=== PATIENT | male | born 1955 | race African-American/Black ===

== ENCOUNTER 2017-04-09 06:40 | Emergency (ER) | payer MEDICARE, MEDICAID ==
[~2017-04-09] VITALS: Ht 177.8 cm; Wt 68.0 kg
[~2017-04-09 06:40] MED LIST: ALBUTEROL SULF8.5 GM INH; AZITHROMYCIN250 MG ORAL; AZITHROMYCIN250 MG PO; BARACLUDE1 MG PO; EPZICOM1 TAB PO; IBUPROFEN600 MG ORAL; LIORESAL20 MG PO; PROMETHAZINE-D118 ML ORAL; REYATAZ200 MG PO; VIREAD300 MG PO; [UNRECOGNIZED DRUG - REMARK]
[2017-04-09 07:05] VITALS: BP 156/91
--- NOTE | 2017-04-09 07:08 | Emergency Room Report ---
History of Present Illness General Chief Complaint: General Complaint Present Illness HPI Patient is a 61-year-old male who presented after increased generalized itching. Patient denied any change in skin color or recent illness. He states that he been having itching without any evidence of rash. This been present for several days. Patient thinks that this is related to stress. He denies any yellowing of his eyes. He had not been vomiting. Allergies: Coded Allergies: ETRAVIRINE (Verified Allergy, Severe, RASH, 03/01/11) EFAVIRENZ (Verified Allergy, Mild, SUSTIVA INTOLERANCE, 02/28/11) Patient History Reviewed Nursing Documentation: PMH: Agreed, PSxH: Agreed Nursing Documentation-PMH Hx Cancer: No Hx Gastrointestinal Problems: Yes - LIVER PROBLEM Review of Systems All Other Systems: negative except mentioned in HPI Physical Exam Vital Signs Date Time Temp Pulse Resp B/P (MAP) Pulse Ox O2 Delivery O2 Flow Rate FiO2 04/09/17 06:54 97.3 67 16 156/91 99 Room Air General Appearance: well appearing, no apparent distress, alert, GCS 15 Head: normocephalic, atraumatic ENT: hearing grossly normal, normal voice Neck: full range of motion, supple Respiratory: no respiratory distress, speaking full sentences Cardiovascular #1: normal inspection, regular rate, rhythm Gastrointestinal: normal inspection, non tender, soft Musculoskeletal: normal inspection, back normal, digits/nails normal, no calf tenderness Neurologic: normal inspection, alert, oriented x3, responsive, assistant construction superintendent III-XII nml as tested, normal gait Psychiatric: normal inspection, judgement/insight normal, mood/affect normal Skin: normal inspection, normal color, no rash Medical Decision Making Diagnostic Impression: Primary Impression: Itching ER Course patient presented for generalized iItching. Differential diagnosis included was not limited to allergic reaction, eczema, scabies, hyperbilirubinemia among others. Patient has a benign exam and does not appear to require any further imaging or laboratory testing at this time. The patient is advised to return if there is any change in skin color or if symptoms worsen. The patient is advised to follow up with primary care doctor in 1-2 daysThis report is dictated with Quovo head of quality software which may occasionally lead to discrepancies related to use of this software. Last Vital Signs Date Time Temp Pulse Resp B/P (MAP) Pulse Ox O2 Delivery O2 Flow Rate FiO2 04/09/17 06:54 97.3 67 16 156/91 99 Room Air Status: improved Disposition: HOME, SELF-CARE Condition: Stable Heber Luis Apr 09, 2017 07:08
[2017-04-09] MEDS ORDERED: HYDROXYZINE HCL10 M1 PO (07:09)
[2017-04-09 07:15] VITALS: BP 156/91
== END 2017-04-09 07:15 | disposition home or self-care (01) ==
LOC: EMR 07:05
DX: L29.9 Pruritus, unspecified (principal); Z88.8 Allergy status to other drugs, medicaments and biological substances
CPT/HCPCS: 99282

== ENCOUNTER 2017-12-09 12:06 | Emergency (ER) | payer MEDICARE, MEDICAID ==
[~2017-12-09] VITALS: Ht 170.2 cm; Wt 74.8 kg
[~2017-12-09 12:06] MED LIST changes: +HYDROXYZINE HCL10 M1 PO
[2017-12-09 12:15] VITALS: BP 161/89
[2017-12-09] MEDS ORDERED: VALACYCLOVIR500 MG ORAL (12:44)
--- NOTE | 2017-12-09 12:45 | Emergency Room Report ---
History of Present Illness General Chief Complaint: Skin Rash/Abscess Source: Patient Present Illness HPI 62-year-old male patient presents ER complaining of rash on his back the past few days. Reports small rash on his back. States that it is itchy. States that he is now beginning to experience pain shooting around to the side to his front at the same level. Denies rash at this area. Denies abdominal pain, dysuria, hematuria. Reports history of HIV, states CD4 count and viral load are good. Denies fever, chest pain, shortness of breath. States he thinks he may been bitten by a bug, however does not see a bug bite and. Reports been using cortisone cream on the affected area. Allergies: Coded Allergies: ETRAVIRINE (Verified Allergy, Severe, RASH, 03/01/11) EFAVIRENZ (Verified Allergy, Mild, SUSTIVA INTOLERANCE, 02/28/11) Patient History Past Medical History: see triage record Reviewed Nursing Documentation: PMH: Agreed; PSxH: Agreed Nursing Documentation-PMH Hx Cancer: No Hx Gastrointestinal Problems: Yes - LIVER PROBLEM Review of Systems All Other Systems: negative except mentioned in HPI Physical Exam Vital Signs Date Time Temp Pulse Resp B/P (MAP) Pulse Ox O2 Delivery O2 Flow Rate FiO2 12/09/17 12:08 98.0 71 20 161/89 100 Room Air 98.1 Sp02 EP Interpretation: reviewed, normal General Appearance: well appearing, no apparent distress, alert, GCS 15, non- toxic Head: normocephalic, atraumatic Eyes: bilateral eye normal inspection, bilateral eye PERRL ENT: hearing grossly normal, normal pharynx, no angioedema, normal voice, uvula midline, moist mucus membranes Neck: full range of motion Respiratory: lungs clear, normal breath sounds, no rhonchi, no respiratory distress, no accessory muscle use, no wheezing, speaking full sentences Cardiovascular #1: regular rate, rhythm, no edema Gastrointestinal: non tender, soft, no mass, non-distended, no guarding, no rebound Musculoskeletal: back normal, digits/nails normal, gait/station normal, normal range of motion, non-tender Psychiatric: mood/affect normal Skin: other - 1cm circular erythematuos vesicles on erythematous base, no weeping lesions, no blisters, no edema, no TTP, no bite abernathy, no fluctuance or induration, no target sign Medical Decision Making PA Attestation Dr. Bullock is my supervising Physician whom patient management has been discussed with. Diagnostic Impression: Primary Impression: Shingles ER Course Pt. presents to the ED c/o rash. Ddx considered but are not limited to atopic dermatitis, shingles, contact dermatitis, molluscum contagiousum. Vital signs: are WNL, pt. is afebrile ER COURSE On physical exam rash consistent with shingles, likely early onset of shingles to pain radiating along single dermatome without rash present, rash does not extend into multiple dermatomes. Avoid contact with women and children to avoid transmission of shingles virus. Will treat with valacyclovir. Followup with PCP for referral to executive creative director. continued take HIV medication and monitor labs with PCP. Patient seen and evaluated by Dr. Bullock, agrees with assessment and plan. DISCHARGE: Rx provided for Valacyclovir, 1gm TID At this time pt is stable for d/c to home. Patient is resting comfortably, in no acute distress, nontoxic appearing. Patient to take medications as instructed Will provide with patient care instructions and any necessary prescriptions. Care plan and follow-up instructions provided. Patient instructed to follow-up with primary care provider in 3 - 5 days. Patient questions asked and answered. Patient reports understanding and agreement to treatment plan. ER precautions given. Patient instructed to return to ER immediately for any new or worsening of symptoms including but not limited to increasing SOB, persistent fever, intractable vomiting, worsening of rash. - Please note that this Emergency Department Report was dictated using Mobstatsmodel builder technology software, occasionally this can lead to erroneous entry secondary to interpretation by the dictation equipment. Last Vital Signs Date Time Temp Pulse Resp B/P (MAP) Pulse Ox O2 Delivery O2 Flow Rate FiO2 12/09/17 12:08 98.0 71 20 161/89 100 Room Air 98.1 Disposition: HOME, SELF-CARE Condition: Stable Scripts Valacyclovir Hcl* (VALTREX*) 500 Mg Tablet 1000 MG ORAL TID, #30 TAB Prov: Richard Ma 12/09/17 Patient Instructions: Shingles, [id number] Additional Instructions: Followup with primary care provider in 3 -5 days. do not scratch or itch. Take medications as directed. Patient questions asked and answered. ER precautions given, patient instructed to return to ER immediately for any new or worsening of symptoms. Richard Ma Dec 09, 2017 12:44
[2017-12-09 13:05] VITALS: BP 161/89
== END 2017-12-09 13:05 | disposition home or self-care (01) ==
LOC: EMR 12:50
DX: B02.9 Zoster without complications (principal); Z88.8 Allergy status to other drugs, medicaments and biological substances
CPT/HCPCS: 99283

== ENCOUNTER 2017-12-21 17:35 | Emergency (ER) | payer MEDICARE, MEDICAID ==
[~2017-12-21] VITALS: Ht 172.7 cm; Wt 74.8 kg
[~2017-12-21 17:35] MED LIST changes: +VALACYCLOVIR500 MG ORAL
[2017-12-21 17:55] VITALS: BP 152/93
--- NOTE | 2017-12-21 17:58 | Emergency Room Report ---
History of Present Illness General Chief Complaint: Skin Rash/Abscess Source: Patient Present Illness HPI Patient recently treated with valacyclovir for shingles L side of chest. Persistent pain with is intermittent, but severe. Radiates to abdomen and flank. No fevers. No cough. Rash is improving and crusting. No NVD, dysuria, joint pain, headache, dyspnea. No depression. Patient with h/o HIV. Stable on medication. Allergies: Coded Allergies: ETRAVIRINE (Verified Allergy, Severe, RASH, 03/01/11) EFAVIRENZ (Verified Allergy, Mild, SUSTIVA INTOLERANCE, 02/28/11) Patient History Past Medical History: see triage record, HIV Social History: Denies: smoking Social History Narrative with sig other Reviewed Nursing Documentation: PMH: Agreed; PSxH: Agreed Nursing Documentation-PMH Past Medical History: No History, Except For Hx Cancer: No Hx Gastrointestinal Problems: Yes - LIVER PROBLEM Review of Systems ENT: Reports: no symptoms All Other Systems: negative except mentioned in HPI Physical Exam Vital Signs Date Time Temp Pulse Resp B/P (MAP) Pulse Ox O2 Delivery O2 Flow Rate FiO2 12/21/17 17:37 98.6 69 19 151/91 97 Room Air 98.6 Sp02 EP Interpretation: reviewed, normal General Appearance: well appearing, no apparent distress Head: normocephalic, atraumatic Eyes: bilateral eye normal inspection, bilateral eye PERRL ENT: hearing grossly normal, normal voice, moist mucus membranes Neck: full range of motion, supple Respiratory: lungs clear, no respiratory distress, speaking full sentences Cardiovascular #1: regular rate, rhythm Cardiovascular #2: 2+ radial (L) Gastrointestinal: normal inspection, normal bowel sounds, non tender, soft Genitourinary: no CVA tenderness Musculoskeletal: back normal, digits/nails normal, gait/station normal, normal range of motion, no calf tenderness Neurologic: alert, oriented x3, normal gait, grossly normal Psychiatric: mood/affect normal Skin: warm/dry, other - resolving shingles rash L T6 or T7 dermatome Medical Decision Making Diagnostic Impression: Primary Impression: Neurodynia post shingles Additional Impressions: Shingles Qualified Codes: B02.8 - Zoster with other complications HIV (human immunodeficiency virus infection) ER Course Patient with persistent pain post treatment for shingles. Diagnosis is clinical. No evidence of abdominal or chest pathology. Indication for analgesia. VS stable and although HIV + no evidence of disseminated disease and rash is resolving. Discussed treatment plan. Discussed that there might be other treatments if prescribed medications do not control the pain. Discussed infectivity with significant other. Patient stable for outpatient observation and treatment. Last Vital Signs Date Time Temp Pulse Resp B/P (MAP) Pulse Ox O2 Delivery O2 Flow Rate FiO2 12/21/17 18:35 98.7 12/21/17 18:17 81 19 152/93 97 Room Air Status: improved Disposition: HOME, SELF-CARE Condition: Improved Scripts Ibuprofen* (MOTRIN*) 600 Mg Tablet 600 MG ORAL Q6H PRN for For Pain, #20 TAB Prov: Josef Sue M.D. 12/21/17 Tramadol Hcl* (ULTRAM*) 50 Mg Tablet 50 MG ORAL Q6H PRN for For Pain, #16 TAB 0 Refills Prov: Josef Sue M.D. 12/21/17 Capsaicin (Zostrix Hp) 56.6 Gm Cream..g. 1 APPLIC TP BID PRN for For Pain, #60 GM 1 Refill Prov: Josef Sue M.D. 12/21/17 Josef Sue M.D. Dec 21, 2017 17:58
[2017-12-21] MEDS ORDERED: oxyCODONE HCL/Acetaminophen 5/325mg ORAL ONE (18:00)
[2017-12-21] MEDS ORDERED: IBUPROFEN600 MG ORAL (18:02)
[2017-12-21] MEDS ORDERED: TRAMADOL HCL50 MG ORAL (18:02)
[2017-12-21] MEDS ORDERED: ZOSTRIX HP56.6 G2 TP (18:02)
[2017-12-21 18:17] VITALS: BP 152/93
== END 2017-12-21 18:17 | disposition home or self-care (01) ==
LOC: EMR 18:03
DX: B02.9 Zoster without complications (principal); B02.29 Other postherpetic nervous system involvement; Z21 Asymptomatic human immunodeficiency virus [HIV] infection status
CPT/HCPCS: 99283

== ENCOUNTER 2018-03-04 09:22 | Emergency (ER) | payer MEDICARE, MEDICAID ==
[~2018-03-04] VITALS: Ht 170.2 cm; Wt 73.5 kg
[~2018-03-04 09:22] MED LIST changes: +TRAMADOL HCL50 MG ORAL; +ZOSTRIX HP56.6 G2 TP
[2018-03-04 11:16] LABS: ANION GAP 7 mmol/L (5-15); BLOOD UREA NITROGEN 17 mg/dL (7-18); CALCIUM 9.3 MG/DL (8.5-10.1); CARBON DIOXIDE 28 MMOL/L (21-32); CHLORIDE 105 MMOL/L (98-107); CREATININE 1.4 MG/DL (0.55-1.30); POTASSIUM 4.1 MMOL/L (3.5-5.1); SODIUM 140 MMOL/L (136-145)
[2018-03-04 11:22] LABS: ALANINE AMINOTRANSFERASE 47 U/L (12-78); ALBUMIN 3.9 G/DL (3.4-5.0); ALBUMIN/GLOBULIN RATIO 0.8 (1.0-2.7); ALKALINE PHOSPHATASE 101 U/L (46-116); ASPARTATE AMINO TRANSFERASE 30 U/L (15-37); BILIRUBIN,TOTAL 0.4 MG/DL (0.2-1.0)
[2018-03-04] MEDS ORDERED: PREDNISONE20 MG ORAL (11:30)
--- NOTE | 2018-03-04 11:30 | Emergency Room Report ---
History of Present Illness General Chief Complaint: Skin Rash/Abscess Source: Patient Present Illness HPI This patient c/o about two days itching bilateral legs, mainly thighs. No clear etiology. No new meds/foods/exposures. No fever, no trauma. No trauma, no fever , no shortness of breath, no travel history, no leg swelling, no chest pain, no diaphoresis, no nausea, no vomiting, no diarrhea, no abdominal pain. Tolerating po fine, normal urinary output, normal bm. No syncope, LOC, dizziness, lightheadedness, headache. +HIV meds; he does not recall last blood test. Allergies: Coded Allergies: ETRAVIRINE (Verified Allergy, Severe, RASH, 03/01/11) EFAVIRENZ (Verified Allergy, Mild, SUSTIVA INTOLERANCE, 02/28/11) Nursing Documentation-[facility] Past Medical History: No History, Except For Hx Cancer: No Hx Gastrointestinal Problems: Yes - Hep B Review of Systems All Other Systems: limited Physical Exam Vital Signs Date Time Temp Pulse Resp B/P (MAP) Pulse Ox O2 Delivery O2 Flow Rate FiO2 03/04/18 09:27 98.2 72 18 143/86 98 Room Air General Appearance: well appearing, no apparent distress Head: normocephalic, atraumatic ENT: hearing grossly normal, normal voice Neck: full range of motion, supple Respiratory: no respiratory distress, speaking full sentences Musculoskeletal: other - mild urticaria medial bilat thighs Neurologic: alert, normal gait Psychiatric: mood/affect normal Skin: no rash Medical Decision Making Diagnostic Impression: Primary Impression: Urticaria Additional Impression: HIV (human immunodeficiency virus infection) Last Vital Signs Date Time Temp Pulse Resp B/P (MAP) Pulse Ox O2 Delivery O2 Flow Rate FiO2 03/04/18 09:27 98.2 72 18 143/86 98 Room Air Status: improved Disposition: HOME, SELF-CARE Condition: Stable Scripts Prednisone* (PREDNISONE*) 20 Mg Tablet 40 MG ORAL DAILY, #5 TAB Prov: Reinaldo Palm M.D. 03/04/18 Referrals: NON PHYSICIAN (PCP) Patient Instructions: Exercise-Induced Urticaria-[employer] Reinaldo Palm M.D. Mar 04, 2018 11:30
[2018-03-04 11:40] VITALS: BP 140/84
[2018-03-04 11:41] VITALS: BP 143/86
== END 2018-03-04 11:43 | disposition home or self-care (01) ==
LOC: EMR 09:40
DX: L50.9 Urticaria, unspecified (principal); B20 Human immunodeficiency virus [HIV] disease; Z88.8 Allergy status to other drugs, medicaments and biological substances
CPT/HCPCS: 36415; 80053; 99282; J7512

== ENCOUNTER 2018-04-04 11:20 | Emergency (ER) | payer MEDICARE, MEDICAID ==
[~2018-04-04] VITALS: Ht 170.2 cm; Wt 74.8 kg
[~2018-04-04 11:20] MED LIST changes: +PREDNISONE20 MG ORAL
--- NOTE | 2018-04-04 11:52 | NUR ---
ED Nurse Note: patient walked into ED with his friend c/o sorethroat, cough, and red eyes. patient rates pain at 8/10. ambulatory with steady gait.
[2018-04-04 12:25] VITALS: BP 156/93
[2018-04-04] MEDS ORDERED: Sodium Chloride 500ML 500 ML IV ONE (12:34)
[2018-04-04] MEDS ORDERED: Solu-MEDROL 125mg Inj IVP ONE (12:45)
[2018-04-04] MEDS ORDERED: Ketorolac 30mg Inj IV ONE (12:45)
[2018-04-04] MEDS ORDERED: Albuterol ud Inhalation HHN ONE (12:45)
--- NOTE | 2018-04-04 13:02 | Emergency Room Report ---
History of Present Illness General Chief Complaint: Flu Like Symptoms Source: Patient Present Illness HPI Patient presents with complaints of cough and congestion body aches reports that initially his symptoms started with some watery eyes Continue to worsen with the cough denies any chest pain denies any vomiting or diarrhea patient has HIV however reports He has appropriate CD4 counts denies any neck pain or photophobia however he does complain of sore throat Denies any focal weakness denies any recent travel Allergies: Coded Allergies: ETRAVIRINE (Verified Allergy, Severe, RASH, 03/01/11) EFAVIRENZ (Verified Allergy, Mild, SUSTIVA INTOLERANCE, 02/28/11) Patient History Past Medical History: see triage record Pertinent Family History: none Reviewed Nursing Documentation: PMH: Agreed; PSxH: Agreed Nursing Documentation-PMH Hx Hypertension: Yes Hx Cancer: No Hx Gastrointestinal Problems: Yes - Hep B Review of Systems All Other Systems: negative except mentioned in HPI Physical Exam Vital Signs Date Time Temp Pulse Resp B/P (MAP) Pulse Ox O2 Delivery O2 Flow Rate FiO2 04/04/18 11:47 98.2 71 18 156/93 97 04/04/18 12:52 Room Air 21 Sp02 EP Interpretation: reviewed, normal General Appearance: well appearing, no apparent distress Head: normocephalic, atraumatic Eyes: right eye other - Mild conjunctival erythema; bilateral eye PERRL, bilateral eye EOMI ENT: hearing grossly normal, normal pharynx, TMs + canals normal, uvula midline Neck: full range of motion, supple, no meningismus, no bony tend Respiratory: lungs clear, normal breath sounds, no rhonchi, no respiratory distress, no retraction, no accessory muscle use Cardiovascular #1: normal peripheral pulses, regular rate, rhythm, no edema, no gallop, no JVD, no murmur Gastrointestinal: normal bowel sounds, non tender, soft, no mass, no organomegaly, non-distended, no guarding, no hernia, no pulsatile mass, no rebound Genitourinary: no CVA tenderness Musculoskeletal: normal inspection Neurologic: oriented x3, responsive, 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, motor strength/ tone normal, sensory intact Psychiatric: mood/affect normal Skin: normal color, no rash, warm/dry, palpation normal Lymphatic: normal inspection, no adenopathy Medical Decision Making Diagnostic Impression: Primary Impression: Atypical pneumonia Additional Impression: Conjunctivitis ER Course Multiple differentials considered patient has appropriate CD4 count and immune level Extensive workup was initiated imaging study does not reveal any obvious acute pathologyextensive workup was initiated patient has done imaging study does not reveal any obvious acute pathology patient has done significantly better throughout his stay significantly better throughout his stay Feels improved I discussed with him regardingFeels improved I discussed with him regarding further inpatient care versus attempting outpatient disposition patient reports that patient reports that he feels better feels better And would like to attempt initial outpatient care Labs Test 04/04/18 12:53 White Blood Count 6.1 K/UL (4.8-10.8) Red Blood Count 4.54 M/UL (4.70-6.10) Hemoglobin 14.1 G/DL (14.2-18.0) Hematocrit 42.2 % (42.0-52.0) Mean Corpuscular Volume 93 FL (80-99) Mean Corpuscular Hemoglobin 31.0 PG (27.0-31.0) Mean Corpuscular Hemoglobin Concent 33.3 G/DL (32.0-36.0) Red Cell Distribution Width 12.2 % (11.6-14.8) Platelet Count 159 K/UL (150-450) Mean Platelet Volume 8.3 FL (6.5-10.1) Neutrophils (%) (Auto) 69.6 % (45.0-75.0) Lymphocytes (%) (Auto) 20.8 % (20.0-45.0) Monocytes (%) (Auto) 7.0 % (1.0-10.0) Eosinophils (%) (Auto) 1.8 % (0.0-3.0) Basophils (%) (Auto) 0.8 % (0.0-2.0) Sodium Level 143 MMOL/L (136-145) Potassium Level 4.1 MMOL/L (3.5-5.1) Chloride Level 105 MMOL/L (98-107) Carbon Dioxide Level 29 MMOL/L (21-32) Anion Gap 9 mmol/L (5-15) Blood Urea Nitrogen 10 mg/dL (7-18) Creatinine 1.0 MG/DL (0.55-1.30) Estimat Glomerular Filtration Rate > 60 mL/min (>60) Glucose Level 101 MG/DL (74-106) Calcium Level 9.5 MG/DL (8.5-10.1) Total Bilirubin 0.5 MG/DL (0.2-1.0) Aspartate Amino Transf (AST/SGOT) 45 U/L (15-37) Alanine Aminotransferase (ALT/SGPT) 31 U/L (12-78) Alkaline Phosphatase 101 U/L (46-116) Total Creatine Kinase 178 U/L (26-308) Creatine Kinase MB < 0.5 NG/ML (0.0-3.6) Creatine Kinase MB Relative Index 0.2 Pro-B-Type Natriuretic Peptide 100 pg/mL (0-125) Total Protein 8.0 G/DL (6.4-8.2) Albumin 3.6 G/DL (3.4-5.0) Globulin 4.4 g/dL Albumin/Globulin Ratio 0.8 (1.0-2.7) Lipase 95 U/L (73-393) Rhythm Strip Diag. Results EP Interpretation: yes Rate: 88 Rhythm: NSR, no PVC's, no ectopy Chest X-Ray Diagnostic Results Chest X-Ray Diagnostic Results : Chest X-Ray Ordered: Yes # of Views/Limited/Complete: 1 View Indication: Chest Pain EP Interpretation: Yes Interpretation: no consolidation, no effusion, no pneumothorax Impression: No acute disease Electronically Signed by: Rasta Blackwood DO Last Vital Signs Date Time Temp Pulse Resp B/P (MAP) Pulse Ox O2 Delivery O2 Flow Rate FiO2 04/04/18 12:52 63 20 Room Air 21 04/04/18 12:52 100 04/04/18 12:25 98.2 156/93 Status: improved Disposition: HOME, SELF-CARE Condition: Improved Scripts Gentamicin Sulfate* (GENTAMICIN SULFATE*) 3.5 Gm Oint...g. 1 INCH OP BID for 7 Days, GM Prov: Rasta Blackwood DO 04/04/18 Codeine/Promethazine Hcl* (PROMETHAZINE-CODEINE SYRUP*) 118 Ml Syrup 10 ML ORAL Q6H PRN for For Cough for 5 Days, ML 0 Refills Prov: Rasta Blackwood DO 04/04/18 Azithromycin* (ZITHROMAX*) 250 Mg Tablet 250 MG ORAL DAILY, #6 TAB 0 Refills Take two tables once daily for 1 day, then one tablet once daily for 4 days. Prov: Rasta Blackwood DO 04/04/18 Trimethoprim/Sulfamethoxazole 160/800* (BACTRIM DS TABLET*) 1 Each Tablet 1 TAB ORAL Q12H, #14 TAB 0 Refills Prov: Rasta Blackwood DO 04/04/18 Ibuprofen* (MOTRIN*) 600 Mg Tablet 600 MG ORAL Q8H PRN for For Pain, #20 TAB 0 Refills Prov: Rasta Blackwood DO 04/04/18 Additional Instructions: Patient is provided with the discharge instructions notified to follow up with primary doctor in the next 2-3 days otherwise return to the er with any worsening symptoms. Please note that this report is being documented using Brigade technology. This can lead to erroneous entry secondary to incorrect interpretation by the dictating instrument.my discharge instructions Rasta Blackwood DO Apr 04, 2018 13:02
[2018-04-04 13:17] LABS: BASOPHILS % (AUTO) 0.8 % (0.0-2.0); EOSINOPHILS % (AUTO) 1.8 % (0.0-3.0); HEMATOCRIT 42.2 % (42.0-52.0); HEMOGLOBIN 14.1 G/DL (14.2-18.0); LYMPHOCYTES % (AUTO) 20.8 % (20.0-45.0); MEAN CORPUSCULAR VOLUME 93 FL (80-99); NEUTROPHILS % (AUTO) 69.6 % (45.0-75.0); PLATELET COUNT 159 K/UL (150-450); RED BLOOD COUNT 4.54 M/UL (4.70-6.10); RED CELL DISTRIBUTION WIDTH 12.2 % (11.6-14.8); WHITE BLOOD COUNT 6.1 K/UL (4.8-10.8)
[2018-04-04 13:27] LABS: ANION GAP 9 mmol/L (5-15); BLOOD UREA NITROGEN 10 mg/dL (7-18); CALCIUM 9.5 MG/DL (8.5-10.1); CARBON DIOXIDE 29 MMOL/L (21-32); CHLORIDE 105 MMOL/L (98-107); POTASSIUM 4.1 MMOL/L (3.5-5.1); SODIUM 143 MMOL/L (136-145)
[2018-04-04 13:41] LABS: ALANINE AMINOTRANSFERASE 31 U/L (12-78); ALBUMIN 3.6 G/DL (3.4-5.0); ALBUMIN/GLOBULIN RATIO 0.8 (1.0-2.7); ALKALINE PHOSPHATASE 101 U/L (46-116); ASPARTATE AMINO TRANSFERASE 45 U/L (15-37); BILIRUBIN,TOTAL 0.5 MG/DL (0.2-1.0); CKMB < 0.5 NG/ML (0.0-3.6); CREATINE KINASE 178 U/L (26-308)
[2018-04-04] MEDS ORDERED: IBUPROFEN600 MG ORAL (14:11)
[2018-04-04] MEDS ORDERED: ZITHROMAX250 MG ORAL (14:11)
[2018-04-04] MEDS ORDERED: PROMETHAZINE-C118 M1 ORAL (14:11)
[2018-04-04] MEDS ORDERED: GENTAMICIN SUL3.5 GM OP (14:11)
[2018-04-04] MEDS ORDERED: BACTRIM DS TAB1 EAC1 ORAL (14:11)
[2018-04-04] MEDS: Bactrim-DS 1 tab ORAL ONE (14:15)
--- NOTE | 2018-04-04 14:16 | Diagnostic Imaging Report ---
EXAM: XR Chest, 1 View CLINICAL HISTORY: SOB TECHNIQUE: Frontal view of the chest. COMPARISON: Chest x-ray 06/10/15 FINDINGS: Lungs: Unremarkable. No consolidation. Pleural space: Unremarkable. No pneumothorax. Heart: Unremarkable. No cardiomegaly. Mediastinum: Unremarkable. Bones/joints: Unremarkable. Vasculature: Aortic knob calcification. IMPRESSION: No acute findings.
--- NOTE | 2018-04-04 14:30 | NUR ---
ED Nurse Note: Patient is being discharged, cleared by ERMD, discharge instructions/paper/prescription given, patient verbalized understanding and stated that he will go to pharmacy to dispense the medication. Patient's IV access removed without complication, patient's ID band removed. Patient ambulated out of ED with his friend, steady gait, with all his belongings.
== END 2018-04-04 14:30 | disposition home or self-care (01) ==
LOC: EMR 12:08 → EDBEDREQ 13:52 → CANBEDREQ 14:09 → EMR 14:30
DX: J18.9 Pneumonia, unspecified organism (principal); H10.9 Unspecified conjunctivitis; I10 Essential (primary) hypertension; Z88.8 Allergy status to other drugs, medicaments and biological substances
CPT/HCPCS: 36415; 71045; 80053; 82550; 82553; 83690; 83880; 85025; 93005; 94640; 94664; 96374; 96375; 99284; J1885; J2930; J7040

== ENCOUNTER 2018-07-07 10:34 | Emergency (ER) | payer MEDICARE, MEDICAID ==
[~2018-07-07] VITALS: Ht 170.2 cm; Wt 77.1 kg
[~2018-07-07 10:34] MED LIST changes: +BACTRIM DS TAB1 EAC1 ORAL; +GENTAMICIN SUL3.5 GM OP; +PROMETHAZINE-C118 M1 ORAL; +ZITHROMAX250 MG ORAL
[2018-07-07 10:45] VITALS: BP 167/96
--- NOTE | 2018-07-07 10:45 | NUR ---
ED Nurse Note: AMBULATED IN TO ER DUE TO LOWER ABDOMINAL DISCOMFORT X 2 WEEKS. DENIES N/V/D NOR BLOODY STOOL. PT DENIES ANY PAIN AT THIS TIME. A/OX4. Addendum: 07/07/18 at 1058 by [email or web address] ED Nurse Note: AMBULATED IN TO ER DUE TO LOWER ABDOMINAL DISCOMFORT X 2 WEEKS. DENIES N/V/D NOR BLOODY STOOL. PT DENIES ANY PAIN AT THIS TIME. A/OX4. DISTENDED ABDOMINAL NOTED. NO TENDERNESS.
--- NOTE | 2018-07-07 10:46 | NUR ---
ED Nurse Note: PER PT, LAST BOWEL MOVEMENT WAS LAST NIGHT.
--- NOTE | 2018-07-07 11:08 | NUR ---
ED Nurse Note: ALL BLOOD SPECIMENS AND URINE SENT DOWN TO THE LAB.
[2018-07-07 11:12] LABS: BASOPHILS % (AUTO) 0.7 % (0.0-2.0); EOSINOPHILS % (AUTO) 1.2 % (0.0-3.0); HEMATOCRIT 45.1 % (42.0-52.0); HEMOGLOBIN 14.9 G/DL (14.2-18.0); LYMPHOCYTES % (AUTO) 26.8 % (20.0-45.0); MEAN CORPUSCULAR VOLUME 93 FL (80-99); MONOCYTES % (AUTO) 4.8 % (1.0-10.0); NEUTROPHILS % (AUTO) 66.4 % (45.0-75.0); PLATELET COUNT 152 K/UL (150-450); RED BLOOD COUNT 4.83 M/UL (4.70-6.10); RED CELL DISTRIBUTION WIDTH 12.4 % (11.6-14.8); WHITE BLOOD COUNT 4.7 K/UL (4.8-10.8)
[2018-07-07] MEDS ORDERED: Isovue-300 100ml vial INJ PRN (11:15)
[2018-07-07] MEDS ORDERED: OXYCODONE HCL5 M2 ORAL (11:24)
[2018-07-07] MEDS ORDERED: GABAPENTIN100 MG ORAL (11:24)
[2018-07-07 11:26] LABS: ANION GAP 7 mmol/L (5-15); BLOOD UREA NITROGEN 12 mg/dL (7-18); CALCIUM 9.4 MG/DL (8.5-10.1); CARBON DIOXIDE 31 MMOL/L (21-32); CHLORIDE 106 MMOL/L (98-107); CREATININE 1.2 MG/DL (0.55-1.30); POTASSIUM 4.6 MMOL/L (3.5-5.1); SODIUM 144 MMOL/L (136-145)
[2018-07-07 11:30] LABS: ALANINE AMINOTRANSFERASE 38 U/L (12-78); ALBUMIN 4.1 G/DL (3.4-5.0); ALKALINE PHOSPHATASE 136 U/L (46-116); ASPARTATE AMINO TRANSFERASE 27 U/L (15-37); BILIRUBIN,TOTAL 0.4 MG/DL (0.2-1.0)
--- NOTE | 2018-07-07 11:32 | NUR ---
ED Nurse Note: Patient has gone down to CT
--- NOTE | 2018-07-07 11:33 | Emergency Room Report ---
History of Present Illness General Chief Complaint: Abdominal Pain Source: Patient, Medical Record Present Illness HPI 62-year-old male presents ED for evaluation. Patient complaining of abdominal distention since this morning. States he was fine last night. Pain is dull, 3 out of 10, nonradiating. States he has "liver issues". History of HIV. States he is compliant with his medications. Denies nausea or vomiting. Denies any diarrhea. Denies fevers or chills. States he's having bowel movements and passing flatus. No other aggravating relieving factors. Denies any other associated symptoms Allergies: Coded Allergies: ETRAVIRINE (Verified Allergy, Severe, RASH, 03/01/11) EFAVIRENZ (Verified Allergy, Mild, SUSTIVA INTOLERANCE, 02/28/11) Patient History Past Medical History: HIV, other - Hep B Past Surgical History: none Pertinent Family History: none Social History: Denies: smoking, alcohol use, drug use Immunizations: UTD Reviewed Nursing Documentation: PMH: Agreed; PSxH: Agreed Nursing Documentation-PMH Past Medical History: No History, Except For Hx Hypertension: Yes Hx Cancer: No Hx Gastrointestinal Problems: Yes - Hep B; "Liver Issues" Review of Systems All Other Systems: negative except mentioned in HPI Physical Exam Vital Signs Date Time Temp Pulse Resp B/P (MAP) Pulse Ox O2 Delivery O2 Flow Rate FiO2 07/07/18 10:36 98.8 75 17 158/89 97 Room Air Sp02 EP Interpretation: reviewed, normal General Appearance: no apparent distress, alert, GCS 15, non-toxic Head: normocephalic, atraumatic Eyes: bilateral eye normal inspection, bilateral eye PERRL ENT: hearing grossly normal, normal pharynx, no angioedema, normal voice Neck: full range of motion, supple/symm/no masses Respiratory: chest non-tender, lungs clear, normal breath sounds, speaking full sentences Cardiovascular #1: regular rate, rhythm, no edema Cardiovascular #2: 2+ carotid (R), 2+ carotid (L), 2+ radial (R), 2+ radial (L) , 2+ dorsalis pedis (R), 2+ dorsalis pedis (L) Gastrointestinal: normal bowel sounds, soft, non-distended, no guarding, no rebound, distended Rectal: deferred Genitourinary: normal inspection, no CVA tenderness Musculoskeletal: back normal, gait/station normal, normal range of motion, non- tender Neurologic: alert, oriented x3, responsive, motor strength/tone normal, sensory intact, speech normal Psychiatric: judgement/insight normal, memory normal, mood/affect normal, no suicidal/homicidal ideation Reflexes: 3+ bicep (R), 3+ bicep (L), 3+ tricep (R), 3+ tricep (L), 3+ knee (R) , 3+ knee (L) Skin: normal color, no rash, warm/dry, well hydrated Lymphatic: no adenopathy Medical Decision Making Diagnostic Impression: Primary Impression: Abdominal distension ER Course Hospital Course 62 year-old M presents to ED with abdominal distension Differential diagnosis includes-appendicitis, cholecystitis, small bowel obstruction, gastritis, Clinical course Patient placed on stretcher. After initial history and physical I ordered labs , IV fluids, CT scan Labs - no leukocytosis, electrolytes ok , LFTs normal CT scan shows no acute pathology, significant fecal impaction Discussed findings with patient. Likely constipation causing his symptoms. States he does have a history of constipation. No signs of a bowel obstruction. No signs of infection or ascites. Safe for discharge with close outpatient follow-up. States he has a PMD. I feel this is a highly complex case requiring extensive working including EKG/ Rhythm strip, Xray/CT/US, Blood/urine lab work, repeat exams while in ED, and administration of strong opiates/narcotics for pain control, admission to hospital or close patient follow up. Diagnosis - abdominal distension Stable and discharged to home with Rx Colace, magnesium citrate. Followup with PMD. Return to ED if symptoms recur or worsen Labs Test 07/07/18 10:39 07/07/18 11:00 Urine Color Pale yellow Urine Appearance Clear Urine pH 7 (4.5-8.0) Urine Specific [place] 1.015 (1.005-1.035) Urine Protein Negative (NEGATIVE) Urine Glucose (UA) Negative (NEGATIVE) Urine Ketones Negative (NEGATIVE) Urine Blood Negative (NEGATIVE) Urine Nitrite Negative (NEGATIVE) Urine Bilirubin Negative (NEGATIVE) Urine Urobilinogen Normal MG/DL (0.0-1.0) Urine Leukocyte Esterase Negative (NEGATIVE) White Blood Count 4.7 K/UL (4.8-10.8) Red Blood Count 4.83 M/UL (4.70-6.10) Hemoglobin 14.9 G/DL (14.2-18.0) Hematocrit 45.1 % (42.0-52.0) Mean Corpuscular Volume 93 FL (80-99) Mean Corpuscular Hemoglobin 30.9 PG (27.0-31.0) Mean Corpuscular Hemoglobin Concent 33.1 G/DL (32.0-36.0) Red Cell Distribution Width 12.4 % (11.6-14.8) Platelet Count 152 K/UL (150-450) Mean Platelet Volume 9.3 FL (6.5-10.1) Neutrophils (%) (Auto) 66.4 % (45.0-75.0) Lymphocytes (%) (Auto) 26.8 % (20.0-45.0) Monocytes (%) (Auto) 4.8 % (1.0-10.0) Eosinophils (%) (Auto) 1.2 % (0.0-3.0) Basophils (%) (Auto) 0.7 % (0.0-2.0) Sodium Level 144 MMOL/L (136-145) Potassium Level 4.6 MMOL/L (3.5-5.1) Chloride Level 106 MMOL/L (98-107) Carbon Dioxide Level 31 MMOL/L (21-32) Anion Gap 7 mmol/L (5-15) Blood Urea Nitrogen 12 mg/dL (7-18) Creatinine 1.2 MG/DL (0.55-1.30) Estimat Glomerular Filtration Rate > 60 mL/min (>60) Glucose Level 103 MG/DL (74-106) Calcium Level 9.4 MG/DL (8.5-10.1) Total Bilirubin 0.4 MG/DL (0.2-1.0) Aspartate Amino Transf (AST/SGOT) 27 U/L (15-37) Alanine Aminotransferase (ALT/SGPT) 38 U/L (12-78) Alkaline Phosphatase 136 U/L (46-116) Total Protein 8.2 G/DL (6.4-8.2) Albumin 4.1 G/DL (3.4-5.0) Globulin 4.1 g/dL Albumin/Globulin Ratio 1.0 (1.0-2.7) Lipase 124 U/L (73-393) CT/MRI/US Diagnostic Results CT/MRI/US Diagnostic Results : Imaging Test Ordered: CT A/P Impression Findings: The appendix is normal. There is colonic diverticulosis. No evidence of diverticulitis. No small bowel distention. No free or loculated intraperitoneal gas or fluid is evident. Distal esophagus, stomach, duodenum are unremarkable. The gallbladder contains small stones. It is nondistended and there is no gallbladder wall thickening. The liver demonstrates a calcification in segment 8 and possibly some other very faint calcifications. No focal lesion otherwise. The bile ducts, pancreas are unremarkable. Numerous calcifications are seen in the spleen. The adrenals are unremarkable. The kidneys demonstrate subcentimeter low-attenuation lesions which are too small to characterize. No calculi or hydronephrosis or hydroureter. No pelvic mass or adenopathy. No retroperitoneal or mesenteric mass or adenopathy. Incidental note is made of a retroaortic left renal vein. The included lung bases are clear. The bones are unremarkable. Last Vital Signs Date Time Temp Pulse Resp B/P (MAP) Pulse Ox O2 Delivery O2 Flow Rate FiO2 07/07/18 10:45 98.8 66 20 167/96 100 Room Air Status: improved Disposition: HOME, SELF-CARE Condition: Stable Scripts Docusate Sodium* (COLACE*) 100 Mg Capsule 100 MG ORAL THREE TIMES A DAY, #30 CAP Prov: Chris Bullock MD 07/07/18 Magnesium Citrate (MAGNESIUM CITRATE) 296 Ml Solution 150 ML PO DAILY for 2 Days, #296 ML Prov: Chris Bullock MD 07/07/18 Referrals: NON PHYSICIAN (PCP) Chris Bullock MD Jul 07, 2018 11:33
--- NOTE | 2018-07-07 11:47 | NUR ---
ED Nurse Note: Patient has came back from CT
[2018-07-07 11:54] LABS: APPEARANCE,URINE CLEAR; BILIRUBIN, URINE NEGATIVE (NEGATIVE); COLOR,URINE PALE YELLOW; GLUCOSE, URINE (UA) NEGATIVE (NEGATIVE); KETONES,URINE NEGATIVE (NEGATIVE); LEUKOCYTE ESTERASE ,URINE NEGATIVE (NEGATIVE); NITRITE,URINE NEGATIVE (NEGATIVE); PH,URINE 7 (4.5-8.0); PROTEIN,URINE NEGATIVE (NEGATIVE); UROBILINOGEN,URINE NORMAL MG/DL (0.0-1.0)
[2018-07-07 12:35] VITALS: BP 122/70
--- NOTE | 2018-07-07 12:45 | Diagnostic Imaging Report ---
Clinical Indication: Abdominal distention Technique: No oral contrast utilized, per emergency room physician request. IV administration nonionic contrast. Venous phase spiral acquisition obtained through the abdomen and pelvis. Multiplanar reconstructions were generated. Total dose length product 676.52 mGycm. CTDIvol(s) 13.04 mGy. Dose reduction achieved using automated exposure control Comparison: none Findings: The appendix is normal. There is colonic diverticulosis. No evidence of diverticulitis. No small bowel distention. No free or loculated intraperitoneal gas or fluid is evident. Distal esophagus, stomach, duodenum are unremarkable. The gallbladder contains small stones. It is nondistended and there is no gallbladder wall thickening. The liver demonstrates a calcification in segment 8 and possibly some other very faint calcifications. No focal lesion otherwise. The bile ducts, pancreas are unremarkable. Numerous calcifications are seen in the spleen. The adrenals are unremarkable. The kidneys demonstrate subcentimeter low-attenuation lesions which are too small to characterize. No calculi or hydronephrosis or hydroureter. No pelvic mass or adenopathy. No retroperitoneal or mesenteric mass or adenopathy. Incidental note is made of a retroaortic left renal vein. The included lung bases are clear. The bones are unremarkable. Impression: No acute abnormality Colonic diverticulosis. No evidence of diverticulitis Cholelithiasis Evidence of old granulomatous disease within the liver and spleen Subcentimeter low-attenuation renal lesions, too small to characterize, most likely benign simple cortical cysts. No further follow-up necessary Incidental finding of retroaortic left renal vein The CT scanner at [facility] is accredited by the [employer] and the scans are performed using protocols designed to limit radiation exposure to as low as reasonably achievable to attain images of sufficient resolution adequate for diagnostic evaluation.
[2018-07-07] MEDS ORDERED: MAGNESIUM CITR296 M1 PO ×2 (13:05)
[2018-07-07] MEDS ORDERED: COLACE100 MG ORAL ×2 (13:05)
[2018-07-07 13:13] VITALS: BP 122/70
--- NOTE | 2018-07-07 13:13 | NUR ---
ED Nurse Note: Pt cleared by health care Provider for discharge. DC instructions/prescription was given and explained to pt and verbalized understanding of teachings. All medical deviecs such as ID band and IV removed. Pt is AAO x4, ambulatory and left with all personal belongings.
== END 2018-07-07 13:14 | disposition home or self-care (01) ==
LOC: EMR 11:00
DX: R14.0 Abdominal distension (gaseous) (principal); B20 Human immunodeficiency virus [HIV] disease; Z88.8 Allergy status to other drugs, medicaments and biological substances; I10 Essential (primary) hypertension; Z86.19 Personal history of other infectious and parasitic diseases; K57.90 Diverticulosis of intestine, part unspecified, without perforation or abscess without bleeding; K80.80 Other cholelithiasis without obstruction
CPT/HCPCS: 36415; 74177; 80053; 81003; 83690; 85025; 96361; 96374; 99284; Q9967; S0028

== ENCOUNTER 2018-08-14 19:40 | Emergency (ER) | payer MEDICARE, MEDICAID ==
[~2018-08-14] VITALS: Ht 170.2 cm; Wt 78.9 kg
[~2018-08-14 19:40] MED LIST changes: +COLACE100 MG ORAL; +GABAPENTIN100 MG ORAL; +MAGNESIUM CITR296 M1 PO; +OXYCODONE HCL5 M2 ORAL
[2018-08-14 20:25] VITALS: BP 161/90
--- NOTE | 2018-08-14 20:25 | NUR ---
ED Nurse Note: Patient walked in to ER c/o chest pain, AAO x4, VSS at this time, skin is dry, intact, warm to touch. Per patient he feels dizzy. Deny V/D. Patient connected to the monitor, will continue to monitor.
[2018-08-14] MEDS ORDERED: ENTECAVIR1 MG PO (20:26)
[2018-08-14] MEDS ORDERED: XOPENEX HFA15 GM IH (20:26)
[2018-08-14] MEDS ORDERED: FLUCONAZOLE200 MG ORAL (20:26)
[2018-08-14] MEDS ORDERED: ADVAIR 250-501 EACH INH (20:26)
[2018-08-14] MEDS ORDERED: CRESTOR10 M1 ORAL (20:26)
[2018-08-14] MEDS ORDERED: BIKTARVY 50-201 EACH PO (20:26)
[2018-08-14] MEDS ORDERED: OMEPRAZOLE20 M3 ORAL (20:26)
[2018-08-14 20:39] LABS: APPEARANCE,URINE CLEAR; BASOPHILS % (AUTO) 1.1 % (0.0-2.0); BILIRUBIN, URINE NEGATIVE (NEGATIVE); EOSINOPHILS % (AUTO) 2.8 % (0.0-3.0); GLUCOSE, URINE (UA) NEGATIVE (NEGATIVE); HEMATOCRIT 42.2 % (42.0-52.0); HEMOGLOBIN 14.7 G/DL (14.2-18.0); KETONES,URINE NEGATIVE (NEGATIVE); LEUKOCYTE ESTERASE ,URINE NEGATIVE (NEGATIVE); MEAN CORPUSCULAR VOLUME 89 FL (80-99); NEUTROPHILS % (AUTO) 59.2 % (45.0-75.0); NITRITE,URINE NEGATIVE (NEGATIVE); PH,URINE 7 (4.5-8.0); PLATELET COUNT 162 K/UL (150-450); PROTEIN,URINE NEGATIVE (NEGATIVE); RED BLOOD COUNT 4.75 M/UL (4.70-6.10); RED CELL DISTRIBUTION WIDTH 11.9 % (11.6-14.8); UROBILINOGEN,URINE 1 MG/DL (0.0-1.0); WHITE BLOOD COUNT 6.2 K/UL (4.8-10.8)
[2018-08-14 20:40] LABS: COLOR,URINE YELLOW
--- NOTE | 2018-08-14 20:47 | Emergency Room Report ---
History of Present Illness General Chief Complaint: Chest Pain Source: Patient (Chris Bullock MD) Present Illness HPI 63-year-old male presents ED for evaluation. Walked in complaining of chest pain. States she's been having chest pain on and off for the last 2 days. Denies chest pain at this time. Left-sided, dull, 5 out of 10, nonradiating. states he gets the pain sometimes when he gets "stressed out". States that there are several family members causing him problems. Denies shortness of breath. Notes history of HIV and states he is compliant with his medications. Denies smoking or drug use. No other aggravating relieving factors. Denies any other associated symptoms (Chris Bullock MD) Allergies: Coded Allergies: ETRAVIRINE (Verified Allergy, Severe, RASH, 03/01/11) EFAVIRENZ (Verified Allergy, Mild, SUSTIVA INTOLERANCE, 02/28/11) Patient History Past Medical History: HTN, HIV Past Surgical History: none Pertinent Family History: none Social History: Denies: smoking, alcohol use, drug use Immunizations: UTD Reviewed Nursing Documentation: PMH: Agreed; PSxH: Agreed (Chris Bullock MD) Nursing Documentation-PMH Hx Hypertension: Yes Hx Asthma: Yes Hx Cancer: No Hx Gastrointestinal Problems: Yes Hx Neurological Problems: Yes (Chris Bullock MD) Review of Systems All Other Systems: negative except mentioned in HPI (Chris Bullock MD) Physical Exam Vital Signs Date Time Temp Pulse Resp B/P (MAP) Pulse Ox O2 Delivery O2 Flow Rate FiO2 08/14/18 20:01 99.1 73 22 161/90 (113) 100 Room Air Sp02 EP Interpretation: reviewed, normal General Appearance: no apparent distress, alert, GCS 15, non-toxic Head: normocephalic, atraumatic Eyes: bilateral eye normal inspection, bilateral eye PERRL ENT: hearing grossly normal, normal pharynx, no angioedema, normal voice Neck: full range of motion, supple/symm/no masses Respiratory: chest non-tender, lungs clear, normal breath sounds, speaking full sentences Cardiovascular #1: regular rate, rhythm, no edema Cardiovascular #2: 2+ carotid (R), 2+ carotid (L), 2+ radial (R), 2+ radial (L) , 2+ dorsalis pedis (R), 2+ dorsalis pedis (L) Gastrointestinal: normal bowel sounds, non tender, soft, non-distended, no guarding, no rebound Rectal: deferred Genitourinary: normal inspection, no CVA tenderness Musculoskeletal: back normal, gait/station normal, normal range of motion, non- tender Neurologic: alert, oriented x3, responsive, motor strength/tone normal, sensory intact, speech normal Psychiatric: judgement/insight normal, memory normal, mood/affect normal, no suicidal/homicidal ideation Reflexes: 3+ bicep (R), 3+ bicep (L), 3+ tricep (R), 3+ tricep (L), 3+ knee (R) , 3+ knee (L) Skin: normal color, no rash, warm/dry, well hydrated Lymphatic: no adenopathy (Chris Bullock MD) Medical Decision Making Diagnostic Impression: Primary Impression: Chest pain ER Course Please for the initial note for the history exam and presentation Patient is a fairly complex patient with multiple differential to consideration including but not limited to cardiac cardiopulmonary and vascular emergencies Troponin level was negative EKG is normal patient remains hemodynamically stable appears well on repeat evaluation is doing better without significant intervention EKG was provided for the patient given the duration of symptom for the past 2-3 days with a negative troponin does provide some reassurance regarding cardiac pathology And the patient stable for close outpatient follow-up Labs Test 08/14/18 20:20 White Blood Count 6.2 K/UL (4.8-10.8) Red Blood Count 4.75 M/UL (4.70-6.10) Hemoglobin 14.7 G/DL (14.2-18.0) Hematocrit 42.2 % (42.0-52.0) Mean Corpuscular Volume 89 FL (80-99) Mean Corpuscular Hemoglobin 30.9 PG (27.0-31.0) Mean Corpuscular Hemoglobin Concent 34.8 G/DL (32.0-36.0) Red Cell Distribution Width 11.9 % (11.6-14.8) Platelet Count 162 K/UL (150-450) Mean Platelet Volume 7.6 FL (6.5-10.1) Neutrophils (%) (Auto) 59.2 % (45.0-75.0) Lymphocytes (%) (Auto) 32.0 % (20.0-45.0) Monocytes (%) (Auto) 5.0 % (1.0-10.0) Eosinophils (%) (Auto) 2.8 % (0.0-3.0) Basophils (%) (Auto) 1.1 % (0.0-2.0) Urine Color Yellow Urine Appearance Clear Urine pH 7 (4.5-8.0) Urine Specific [place] 1.015 (1.005-1.035) Urine Protein Negative (NEGATIVE) Urine Glucose (UA) Negative (NEGATIVE) Urine Ketones Negative (NEGATIVE) Urine Blood Negative (NEGATIVE) Urine Nitrite Negative (NEGATIVE) Urine Bilirubin Negative (NEGATIVE) Urine Urobilinogen 1 MG/DL (0.0-1.0) Urine Leukocyte Esterase Negative (NEGATIVE) Sodium Level 141 MMOL/L (136-145) Potassium Level 4.4 MMOL/L (3.5-5.1) Chloride Level 106 MMOL/L (98-107) Carbon Dioxide Level 30 MMOL/L (21-32) Anion Gap 5 mmol/L (5-15) Blood Urea Nitrogen 11 mg/dL (7-18) Creatinine 1.4 MG/DL (0.55-1.30) Estimat Glomerular Filtration Rate > 60 mL/min (>60) Glucose Level 98 MG/DL (74-106) Calcium Level 9.4 MG/DL (8.5-10.1) Total Bilirubin 0.5 MG/DL (0.2-1.0) Aspartate Amino Transf (AST/SGOT) 36 U/L (15-37) Alanine Aminotransferase (ALT/SGPT) 37 U/L (12-78) Alkaline Phosphatase 100 U/L (46-116) Total Creatine Kinase 221 U/L (26-308) Creatine Kinase MB 1.1 NG/ML (0.0-3.6) Creatine Kinase MB Relative Index 0.4 Troponin I 0.000 ng/mL (0.000-0.056) Pro-B-Type Natriuretic Peptide 25 pg/mL (0-125) Total Protein 8.1 G/DL (6.4-8.2) Albumin 4.0 G/DL (3.4-5.0) Globulin 4.1 g/dL Albumin/Globulin Ratio 1.0 (1.0-2.7) Lipase 142 U/L (73-393) Urine Opiates Screen Negative (NEGATIVE) Urine Barbiturates Screen Negative (NEGATIVE) Phencyclidine (PCP) Screen Negative (NEGATIVE) Urine Amphetamines Screen Negative (NEGATIVE) Urine Benzodiazepines Screen Negative (NEGATIVE) Urine Cocaine Screen Negative (NEGATIVE) Urine Marijuana (THC) Screen Negative (NEGATIVE) (Rasta Blackwood DO) EKG Diagnostic Results Rate: normal Rhythm: NSR ST Segments: no acute changes (Chris Bullock MD) Rate: normal Rhythm: NSR ST Segments: no acute changes (Rasta Blackwood DO) Rhythm Strip Diag. Results EP Interpretation: yes Rhythm: NSR, no PVC's, no ectopy (Chris Bullock MD) EP Interpretation: yes Rate: 70 Rhythm: NSR, no PVC's, no ectopy (Rasta Blackwood DO) Chest X-Ray Diagnostic Results Chest X-Ray Diagnostic Results : Chest X-Ray Ordered: Yes # of Views/Limited/Complete: 1 View Indication: Chest Pain EP Interpretation: Yes Interpretation: no consolidation, no effusion, no pneumothorax, no acute cardiopulmonary disease Impression: No acute disease Electronically Signed by: Electronically signed by Chris Bullock MD (Chris Bullock MD) Chest X-Ray Diagnostic Results : Chest X-Ray Ordered: Yes # of Views/Limited/Complete: 1 View Indication: Chest Pain EP Interpretation: Yes Interpretation: no consolidation, no effusion, no pneumothorax Impression: No acute disease Electronically Signed by: Rasta Blackwood DO (Rasta Blackwood DO) Last Vital Signs Date Time Temp Pulse Resp B/P (MAP) Pulse Ox O2 Delivery O2 Flow Rate FiO2 08/14/18 20:01 99.1 73 22 161/90 (113) 100 Room Air (Chris Bullock MD) Status: improved (Rasta Blackwood DO) Disposition: HOME, SELF-CARE Condition: Improved Additional Instructions: Patient is provided with the discharge instructions notified to follow up with primary doctor in the next 2-3 days otherwise return to the er with any worsening symptoms. Please note that this report is being documented using [employer] technology. This can lead to erroneous entry secondary to incorrect interpretation by the dictating instrument. Chris Bullock MD August 14, 2018 20:47 Rasta Blackwood DO August 14, 2018 21:29
[2018-08-14 20:49] LABS: ANION GAP 5 mmol/L (5-15); BLOOD UREA NITROGEN 11 mg/dL (7-18); CALCIUM 9.4 MG/DL (8.5-10.1); CARBON DIOXIDE 30 MMOL/L (21-32); CHLORIDE 106 MMOL/L (98-107); CREATININE 1.4 MG/DL (0.55-1.30); POTASSIUM 4.4 MMOL/L (3.5-5.1); SODIUM 141 MMOL/L (136-145)
[2018-08-14 21:03] LABS: ALANINE AMINOTRANSFERASE 37 U/L (12-78); ALKALINE PHOSPHATASE 100 U/L (46-116); ASPARTATE AMINO TRANSFERASE 36 U/L (15-37); BILIRUBIN,TOTAL 0.5 MG/DL (0.2-1.0); CKMB 1.1 NG/ML (0.0-3.6); CREATINE KINASE 221 U/L (26-308)
[2018-08-14 21:30] VITALS: BP 140/87
--- NOTE | 2018-08-14 21:30 | NUR ---
ER DISCHARGE NOTE: Patient is cleared to be discharged per ERMD, pt is aox4, on room air, with stable vital signs. pt was given dc and prescription instructions, pt was able to verbalize understanding, pt id band and iv site removed without complications. pt is able to ambulate with steady gait. pt took all belongings.
== END 2018-08-14 21:30 | disposition home or self-care (01) ==
LOC: EMR 21:00
DX: R07.9 Chest pain, unspecified (principal); I10 Essential (primary) hypertension; J45.909 Unspecified asthma, uncomplicated; Z88.8 Allergy status to other drugs, medicaments and biological substances
CPT/HCPCS: 36415; 71045; 80053; 80307; 81003; 82550; 82553; 83690; 83880; 84484; 85025; 93005; 99284

== ENCOUNTER 2018-09-27 00:19 | Emergency (ER) | payer MEDICARE, MEDICAID ==
[~2018-09-27] VITALS: Ht 170.2 cm; Wt 75.7 kg
[~2018-09-27 00:19] MED LIST changes: +ADVAIR 250-501 EACH INH; +BIKTARVY 50-201 EACH PO; +CRESTOR10 M1 ORAL; +ENTECAVIR1 MG PO; +FLUCONAZOLE200 MG ORAL; +OMEPRAZOLE20 M3 ORAL; +XOPENEX HFA15 GM IH
[2018-09-27 00:26] VITALS: BP 135/89
--- NOTE | 2018-09-27 00:26 | NUR ---
ED Nurse Note: PT AMBULATED TO ED C/O CP X 1 WEEK.
[2018-09-27] MEDS ORDERED: Aspirin Baby 81mg ORAL ONE (00:30)
--- NOTE | 2018-09-27 00:30 | NUR ---
ED Nurse Note: IV ACCESS ESTABLISHED, PT PLACED ON LOWEST BED POSITION WITH X 2 SIDE RAILS.
--- NOTE | 2018-09-27 00:33 | Emergency Room Report ---
History of Present Illness General Chief Complaint: Chest Pain Source: Patient, Medical Record Present Illness HPI Is a 63-year-old male with a history of HIV. Also newly diagnosed hypertension. He presents with chief complaint of chest pain. Onset for about a week now. Pain is to the mid chest and right side. No radiation. No nausea no vomiting. No fever chills. He was here before for the same thing. Pain is 7 out of 10. Achy in nature. No exertional component. No diaphoresis. Allergies: Coded Allergies: ETRAVIRINE (Verified Allergy, Severe, RASH, 03/01/11) EFAVIRENZ (Verified Allergy, Mild, SUSTIVA INTOLERANCE, 02/28/11) Patient History Past Medical History: see triage record, old chart reviewed, HTN, HIV Past Surgical History: none Pertinent Family History: none Social History: Denies: smoking Immunizations: other Reviewed Nursing Documentation: PMH: Agreed; PSxH: Agreed Nursing Documentation-PMH Past Medical History: No History, Except For Hx Hypertension: Yes Hx Asthma: Yes Hx Cancer: No Hx Gastrointestinal Problems: Yes Hx Neurological Problems: Yes Review of Systems Eye: Denies: eye pain, blurred vision ENT: Denies: ear pain, nose congestion, throat swelling Respiratory: Denies: cough, shortness of breath Cardiovascular: Reports: chest pain; Denies: palpitations Gastrointestinal: Denies: abdominal pain, diarrhea, nausea, vomiting Musculoskeletal: Denies: back pain, joint pain Skin: Denies: rash Neurological: Denies: headache, numbness Endocrine: Denies: increased thirst, increased urine Hematologic/Lymphatic: Denies: easy bruising All Other Systems: negative except mentioned in HPI Physical Exam Vital Signs Date Time Temp Pulse Resp B/P (MAP) Pulse Ox O2 Delivery O2 Flow Rate FiO2 09/27/18 00:26 99.1 75 18 135/89 (104) 100 Room Air Vitals normal Sp02 EP Interpretation: reviewed, normal General Appearance: well appearing, no apparent distress, alert Head: normocephalic, atraumatic Eyes: bilateral eye PERRL, bilateral eye EOMI ENT: hearing grossly normal, normal pharynx Neck: full range of motion, supple, no meningismus Respiratory: chest non-tender, lungs clear, normal breath sounds Cardiovascular #1: regular rate, rhythm, no murmur Gastrointestinal: normal bowel sounds, non tender, no mass, no organomegaly, no bruit, non-distended Musculoskeletal: back normal, gait/station normal, normal range of motion Psychiatric: anxious Medical Decision Making Diagnostic Impression: Primary Impression: Chest pain Qualified Codes: R07.9 - Chest pain, unspecified ER Course Presents with chest pain. This is most likely stress related. His partner said that he is under a lot of stress. Patient denied it. No evidence of ACS, PE, dissection to name a few. Will discharge home. May benefit from outpatient stress testing. EKG Diagnostic Results Rate: normal Rhythm: NSR ST Segments: no acute changes ASA given to the pt in ED: Yes Rhythm Strip Diag. Results EP Interpretation: yes Rate: 65 Rhythm: NSR, no PVC's, no ectopy Chest X-Ray Diagnostic Results Chest X-Ray Diagnostic Results : Chest X-Ray Ordered: Yes # of Views/Limited/Complete: 1 View Indication: Chest Pain EP Interpretation: Yes Interpretation: no consolidation, no effusion, no pneumothorax, no acute cardiopulmonary disease Impression: No acute disease Electronically Signed by: Moy Aiken MD Last Vital Signs Date Time Temp Pulse Resp B/P (MAP) Pulse Ox O2 Delivery O2 Flow Rate FiO2 09/27/18 00:26 99.1 75 18 135/89 (104) 100 Room Air Status: improved Disposition: HOME, SELF-CARE Condition: Stable Scripts Ibuprofen* (MOTRIN*) 600 Mg Tablet 600 MG ORAL THREE TIMES A DAY, #30 TAB 0 Refills Prov: Moy Aiken MD 09/27/18 Patient Instructions: Nonspecific Chest Pain Additional Instructions: Follow-up with your doctor in a week. If continue with pain, you may benefit from referral to see a it service manager for stress testing. Return if symptoms worsen. Moy Aiken MD Sep 27, 2018 00:33
--- NOTE | 2018-09-27 00:36 | NUR ---
ED Nurse Note: BLOOD SPECIMEN SENT TO LAB
--- NOTE | 2018-09-27 00:40 | NUR ---
ED Nurse Note: CHEST XRAY AT BEDSIDE
--- NOTE | 2018-09-27 00:42 | NUR ---
ED Nurse Note: XRAY COMPLETED
--- NOTE | 2018-09-27 00:46 | NUR ---
ED Nurse Note: HANNAH (BF) AT BEDSIDE
[2018-09-27 01:07] LABS: BASOPHILS % (AUTO) 1.1 % (0.0-2.0); EOSINOPHILS % (AUTO) 4.7 % (0.0-3.0); HEMATOCRIT 41.4 % (42.0-52.0); HEMOGLOBIN 14.4 G/DL (14.2-18.0); LYMPHOCYTES % (AUTO) 34.8 % (20.0-45.0); MEAN CORPUSCULAR VOLUME 93 FL (80-99); MONOCYTES % (AUTO) 3.3 % (1.0-10.0); NEUTROPHILS % (AUTO) 56.1 % (45.0-75.0); PLATELET COUNT 162 K/UL (150-450); RED BLOOD COUNT 4.48 M/UL (4.70-6.10); RED CELL DISTRIBUTION WIDTH 11.8 % (11.6-14.8); WHITE BLOOD COUNT 5.7 K/UL (4.8-10.8)
[2018-09-27 01:11] LABS: ANION GAP 6 mmol/L (5-15); BLOOD UREA NITROGEN 16 mg/dL (7-18); CALCIUM 9.7 MG/DL (8.5-10.1); CARBON DIOXIDE 29 MMOL/L (21-32); CHLORIDE 106 MMOL/L (98-107); CREATININE 1.3 MG/DL (0.55-1.30); POTASSIUM 3.5 MMOL/L (3.5-5.1); SODIUM 141 MMOL/L (136-145)
[2018-09-27] MEDS ORDERED: IBUPROFEN600 MG ORAL (01:38)
--- NOTE | 2018-09-27 01:43 | NUR ---
ER DISCHARGE NOTE: Patient is cleared to be discharged per ERMD, pt is aox4, on room air, with stable vital signs. pt was given dc and prescription instructions, pt was able to verbalize understanding, pt id band and iv site removed without complications. pt is able to ambulate with steady gait. pt took all belongings. accompanied by significant other
[2018-09-27 01:44] VITALS: BP 127/73
--- NOTE | 2018-09-27 14:29 | Diagnostic Imaging Report ---
Indication: Chest pain Comparison: 08/14/2018 A single view chest radiograph was obtained. Findings: Cardiomediastinal appearance is within normal limits for age. The lungs are clear. Pulmonary vascularity is appropriate. The diaphragmatic contour is smooth and costophrenic angles are sharp. No pleural effusions are identified. The bones are osteopenic. Impression: No acute findings
== END 2018-09-27 01:43 | disposition home or self-care (01) ==
LOC: EMR 00:54
DX: R07.9 Chest pain, unspecified (principal); B20 Human immunodeficiency virus [HIV] disease; Z88.8 Allergy status to other drugs, medicaments and biological substances; I10 Essential (primary) hypertension
CPT/HCPCS: 36415; 71045; 80048; 84484; 85025; 99283